=== PATIENT | female | born 1990 | race Caucasian/White ===

== ENCOUNTER 2018-12-09 17:52 | Emergency (ER) | payer MEDICAID ==
[~2018-12-09] VITALS: Ht 160 cm; Wt 131.0 kg
[2018-12-09] MEDS ORDERED: SODIUM CHLORIDE 0.9% 1,000 ML IV ONE (22:51)
[2018-12-09 23:12] LABS: CLARITY URINE CLEAR (CLEAR); COLOR URINE YELLOW (YELLOW); KETONES URINE NEGATIVE (NEGATIVE); LEUKOCYTE ESTERASE URINE NEGATIVE (NEGATIVE); NITRITE URINE NEGATIVE (NEGATIVE); OCCULT BLOOD URINE NEGATIVE (NEGATIVE); PH URINE 6.5 (4.5-8.0); PROTEIN URINE NEGATIVE (NEGATIVE); SPECIFIC GRAVITY URINE 1.016 (1.005-1.030); UROBILINOGEN URINE 0.2 E.U./dL (0.2-1.0)
[2018-12-09 23:30] LABS: BASOPHILS % 0.8 % (0.0-2.0); EOSINOPHILS % 1.8 % (0.0-5.0); HEMATOCRIT. 38.5 % (36.0-48.0); HEMOGLOBIN. 13.2 g/dL (12.0-16.0); LYMPHOCYTES % 22.4 % (20.0-50.0); MEAN CORPUSCULAR VOLUME 81.8 fL (81.0-99.0); MEAN PLATELET VOLUME 9.1 fl (7.4-10.4); MONOCYTES % 8.6 % (2.0-8.0); NEUTROPHILS % 66.4 % (40.0-76.0); PLATELET 220 x1000/uL (130-400); RED CELL DISTRIBUTION WIDTH 14.4 % (11.6-14.6)
[2018-12-09 23:40] LABS: CHLORIDE 107 mEq/L (98-107)
[2018-12-10 00:05] LABS: B-HCG QUANTITATIVE 28487 mIU/mL (<3)
[2018-12-10 03:13] VITALS: BP 98/44
== END 2018-12-10 03:17 | disposition home or self-care (01) ==
LOC: ER 17:52
DX: O26.891 Other specified pregnancy related conditions, first trimester (principal); O20.0 Threatened abortion; Z3A.01 Less than 8 weeks gestation of pregnancy; Z90.49 Acquired absence of other specified parts of digestive tract; Z98.890 Other specified postprocedural states
CPT/HCPCS: 36415; 76770; 76801; 76817; 80053; 81003; 83690; 84702; 85025; 86850; 86900; 86901; 96360; 99284; J7030

== ENCOUNTER 2019-01-15 19:38 | Emergency (ER) | payer MEDICAID ==
[~2019-01-15] VITALS: Ht 160 cm; Wt 135.0 kg
[2019-01-15] MEDS ORDERED: ACETAMINOPHEN 325MG TABLET PO STA (21:21)
[2019-01-15] MEDS ORDERED: SODIUM CHLORIDE 0.9% 1,000 ML IV ONE ×2 (21:21)
[2019-01-15 21:26] LABS: CLARITY URINE TURBID (CLEAR); COLOR URINE YELLOW (YELLOW); KETONES URINE NEGATIVE (NEGATIVE); LEUKOCYTE ESTERASE URINE NEGATIVE (NEGATIVE); NITRITE URINE NEGATIVE (NEGATIVE); OCCULT BLOOD URINE NEGATIVE (NEGATIVE); PH URINE 7.5 (4.5-8.0); PROTEIN URINE NEGATIVE (NEGATIVE); SPECIFIC GRAVITY URINE 1.016 (1.005-1.030)
[2019-01-15 21:58] LABS: BASOPHILS % 0.6 % (0.0-2.0); EOSINOPHILS % 1.2 % (0.0-5.0); HEMATOCRIT. 39.6 % (36.0-48.0); HEMOGLOBIN. 13.5 g/dL (12.0-16.0); LYMPHOCYTES % 22.7 % (20.0-50.0); MEAN CORPUSCULAR HEMOGLOBIN 27.8 pg (28.0-32.0); MEAN CORPUSCULAR VOLUME 81.6 fL (81.0-99.0); MEAN PLATELET VOLUME 9.3 fl (7.4-10.4); NEUTROPHILS % 66.5 % (40.0-76.0); PLATELET 208 x1000/uL (130-400); RED BLOOD CELL COUNT 4.85 mill/uL (4.2-5.4); RED CELL DISTRIBUTION WIDTH 14.4 % (11.6-14.6)
[2019-01-15 22:00] LABS: CHLORIDE 108 mEq/L (98-107)
[2019-01-15 22:23] LABS: B-HCG QUANTITATIVE 70526 mIU/mL (<3)
[2019-01-16 01:47] VITALS: BP 108/62
== END 2019-01-16 02:07 | disposition home or self-care (01) ==
LOC: ER 19:38
DX: O23.41 Unspecified infection of urinary tract in pregnancy, first trimester (principal); Z3A.12 12 weeks gestation of pregnancy; Z90.49 Acquired absence of other specified parts of digestive tract; Z88.3 Allergy status to other anti-infective agents
CPT/HCPCS: 36415; 76700; 76801; 76817; 80053; 81003; 81025; 83605; 83690; 84702; 85025; 87040; 87086; 99284; J7030

== ENCOUNTER 2019-03-28 10:46 | Observation (INO) | payer MEDICAID ==
[~2019-03-28] VITALS: Ht 160 cm; Wt 131.5 kg
[2019-03-28 12:17] LABS: CLARITY URINE CLOUDY (CLEAR); COLOR URINE YELLOW (YELLOW); KETONES URINE NEGATIVE (NEGATIVE); LEUKOCYTE ESTERASE URINE NEGATIVE (NEGATIVE); NITRITE URINE NEGATIVE (NEGATIVE); OCCULT BLOOD URINE NEGATIVE (NEGATIVE); PROTEIN URINE NEGATIVE (NEGATIVE); SPECIFIC GRAVITY URINE 1.013 (1.005-1.030)
[2019-03-28] MEDS ORDERED: PREN1TAB78 MT (13:16)
== END 2019-03-28 13:30 | disposition home or self-care (01) ==
LOC: 8 EST LDRP 10:46 → 8 EST A/PP 11:08
PROVIDERS: ADMIT Obstetrics & Gynecology; ATTEND Obstetrics & Gynecology
DX: O26.892 Other specified pregnancy related conditions, second trimester (principal); R10.9 Unspecified abdominal pain; Z3A.22 22 weeks gestation of pregnancy
CPT/HCPCS: 81003; 99281; G0378

== ENCOUNTER 2019-06-09 20:08 | Observation (INO) | payer MEDICAID ==
[~2019-06-09] VITALS: Ht 160 cm; Wt 139.3 kg
[~2019-06-09 20:08] MED LIST: PREN1TAB78 MT
[2019-06-09] MEDS ORDERED: LACTATED RINGERS 1,000 ML IV SCH (20:59)
[2019-06-09 21:24] LABS: CLARITY URINE CLOUDY (CLEAR); COLOR URINE YELLOW (YELLOW); KETONES URINE NEGATIVE (NEGATIVE); LEUKOCYTE ESTERASE URINE TRACE (NEGATIVE); NITRITE URINE NEGATIVE (NEGATIVE); OCCULT BLOOD URINE NEGATIVE (NEGATIVE); PROTEIN URINE NEGATIVE (NEGATIVE); SPECIFIC GRAVITY URINE 1.008 (1.005-1.030); UROBILINOGEN URINE 0.2 E.U./dL (0.2-1.0)
[2019-06-09] MEDS ORDERED: ACETAMINOPHEN 325MG TABLET PO PRN (21:30)
[2019-06-09] MEDS ORDERED: CEFAZOLIN 2,000 MG in DEXT 5% WATER 100 ML IV SCH (22:00)
== END 2019-06-09 23:00 | disposition home or self-care (01) ==
LOC: OB TRIAGE 20:08
PROVIDERS: ADMIT Obstetrics & Gynecology; ATTEND Obstetrics & Gynecology
DX: O26.893 Other specified pregnancy related conditions, third trimester (principal); R10.30 Lower abdominal pain, unspecified; R10.2 Pelvic and perineal pain; Z3A.33 33 weeks gestation of pregnancy
CPT/HCPCS: 81003; 96365; 99281; G0378; J0690; J7060